=== PATIENT | male | born 1990 | race Caucasian/White ===

== ENCOUNTER 2024-07-11 10:55 | Emergency (ER) | payer SELFPAY ==
[2024-07-11 11:07] VITALS: BP 144/94; PULSE 81; RESP 18; TEMP 37; O2SAT 100; BMI 27.1
--- NOTE | 2024-07-11 12:25 | CRLHL7_ITS ---
For Patients: As a result of the Cures Act, medical imaging exams and procedure reports are released immediately into your electronic medical record. You may view this report before your referring provider. If you have questions, please contact your health care provider. Indication: Crush injury, laceration Technique: Three views left hand Comparison: None Findings/Impression: Bones: There are tuft fractures at the 3rd and 4th digits with a small fragment at the tip of the 3rd tuft with more fragmentation of the medial aspect of the left 4th tuft. No significant displacement. Joint spaces: Unremarkable. Soft tissues: Mild soft tissue swelling. Dictated by Nikita Walters MD @ 07/11/2024 1:00:02 PM (Electronically Signed)
[2024-07-11] MEDS: LIDOCAINE 1%-EPI 1:100,000 10 ML INFILTRATI (12:26)
--- NOTE | 2024-07-11 12:36 | ED.GENADULT ---
HPI - General Adult General Date Seen: 07/11/24 Chief complaint: Laceration/Wound Stated complaint: L hand lacs Time Seen by Provider: 07/11/24 12:00 History of Present Illness HPI narrative: Patient is a 34-year-old Setsw[place]-speaking male here from an injury at work. He had a heavy metal box fall on his left hand and injured his 3rd and 4th fingers. His pain is primarily in the distal 3rd and 4th fingers although he says his entire arm hurts from the shoulder down. No other specific injury aside from those distal fingers however. Tetanus is up-to-date. He has some generalized numbness and tingling in the fingers. Related Data Home Medications ?Medication ?Instructions ?Recorded ?Confirmed No Known Home Medications 07/11/24 07/11/24 Allergies Allergy/AdvReac Type Severity Reaction Status Date / Time No Known Drug Allergies Allergy Verified 07/11/24 11:19 PFSH PFSH Social History Smoking Status: Never smoker Do you use any of these nicotine containing products: None Exam Narrative: Exam Narrative: Vital signs reviewed In general, alert, well-appearing young man. Extremities: Examination of the left hand shows crush injury to the 3rd and 4th fingers. Both fingernails have avulsed from the nail bed at their base. Both distal fingers appear to be slightly volarly angulated. No active bleeding at this time. Notes decreased sensation to light touch over both fingers. Const: Vital Signs, click to edit/add: Vital Signs - 24 hr 07/11/24 11:07 Temperature 98.6 F Pulse Rate [Pulse Oximeter] 81 Respiratory Rate 18 Blood Pressure [Ri ght Upper Arm] 144/94 H Pulse Oximetry 100 Oxygen Delivery Me thod Room Air Documenting provider has reviewed patient's vital signs: yes Course Course ED Course: I did a digital block for both the 3rd and 4th fingers. Will get an x-ray to evaluate for bony injury. Both fingernails will need to be removed. He had good pain control with the digital block. X-rays of the hand show a tuft fractures of the 3rd and 4th finger, no significant displacement and no other fractures by my review. Final radiology read reviewed as well and notes minimally displaced tuft fractures. Procedure note: Both fingers were treated similarly, nails were removed and nail bed lacerations were closed using 4-0 Vicryl, 3 sutures in each nail bed. On the 4th finger, there was additional laceration into the skin on the sides of the finger, I placed 3 superficial simple interrupted sutures using 4-0 nylon in the ulnar aspect of the 4th finger and 1 in the radial aspect of the 4th finger. Nails were replaced underneath the eponychium and were tethered with sutures. He tolerated all this well without immediate complication. A tourniquet was placed while I worked on each finger individually and then was removed with completion. Bleeding controlled. A dressing was applied by the fire protection equipment technician followed by splint for both fingers. I am going to put him on Keflex for few days given these tuft fractures. I have given him some oxycodone for more severe pain over the next couple of days. I gave him a note for work, would not like him to use the left hand for the next week. Suture removal of the nylon sutures in a week, nail removal at that time as well. Absorbable sutures can be removed if he would like. For signs of infection such as increasing pain, swelling, drainage etcetera, return to the ER at any time. Vital Signs Vital signs: Initial Vital Signs Temperature 98.6 F 07/11/24 11:07 Temperature Source Temporal Artery Scan 07/11/24 11:07 Pulse Rate 81 07/11/24 11:07 Respiratory Rate 18 07/11/24 11:07 Blood Pressure 144/94 H 07/11/24 11:07 Blood Pressure Mean 110 H 07/11/24 11:07 Blood Pressure Position Sitting 07/11/24 11:07 Pulse Oximetry 100 07/11/24 11:07 Oxygen Delivery Method Room Air 07/11/24 11:07 Vital Signs Temperature 98.6 F 07/11/24 11:07 Pulse Rate 81 07/11/24 11:07 Respiratory Rate 18 07/11/24 11:07 Blood Pressure 144/94 H 07/11/24 11:07 Pulse Oximetry 100 07/11/24 11:07 Oxygen Delivery Method Room Air 07/11/24 11:07 Temperature 98.6 F 07/11/24 11:07 Pulse Rate 81 07/11/24 11:07 Respiratory Rate 18 07/11/24 11:07 Blood Pressure 144/94 H 07/11/24 11:07 Pulse Oximetry 100 07/11/24 11:07 Oxygen Delivery Method Room Air 07/11/24 11:07 Medications Administered Medications: Discontinued Medications Generic Name Dose Route Start Last Admin Trade Name Kristine PRN Reason Stop Dose Admin Lidocaine/Epinephrine 10 ml 07/11/24 12:14 07/11/24 12:26 Lidocaine 1%-Epi 1:100,000 INFILTRATI 07/11/24 12:15 10 ml ONCE ONE Administration Medical Decision Making Imaging Data Hand x-ray: Attestation: I have reviewed the pertinent imaging results. Radiologist's impression: [place] [address] Diagnostic Imaging Report Patient: Mark Anthony Ovalle MR#: [id number] : 1990 Acct:[id number] Loc: ED Service Date: 07/11/[address]: Ordering Physician: Radha Grimaldo M.D. Date of Service: 07/11/24 Procedure(s): XR hand LT min 3V Accession Number(s): [id number] cc: Radha Grimaldo M.D.~ For Patients: As a result of the Cures Act, medical imaging exams and procedure reports are released immediately into your electronic medical record. You may view this report before your referring provider. If you have questions, please contact your health care provider. Indication: Crush injury, laceration Technique: Three views left hand Comparison: None Findings/Impression: Bones: There are tuft fractures at the 3rd and 4th digits with a small fragment at the tip of the 3rd tuft with more fragmentation of the medial aspect of the left 4th tuft. No significant displacement. Joint spaces: Unremarkable. Soft tissues: Mild soft tissue swelling. Dictated by Nikita Walters MD @ 07/11/2024 1:00:02 PM Discharge Plan Discharge Clinical Impression: Nailbed injury, Closed fracture of tuft of distal phalanx of left middle finger, Closed fracture of tuft of distal phalanx of left ring finger Patient Disposition: Home, Self-Care Condition: Improved Instructions: Finger Fracture (ED), Finger Laceration (ED) Additional Instructions: Please take the antibiotic, Keflex, as prescribed. You have minor fractures at the tips of both of your fingers, these should heal well. You have lacerations on the nail beds of both fingers as well. These have absorbable sutures, which will dissolve over time. You have nonabsorbable sutures on your 4th finger which should be taken out in about a week. At that time, the nails which I sewed back on to protect your nail bed and cuticle can be removed as well. If you develop signs of infection such as increasing pain, swelling, redness or drainage, please return to the emergency department. Otherwise, follow-up with your outpatient clinic in 1 week for suture removal. For pain, you can use Tylenol and or Motrin. I gave you a prescription for oxycodone if needed for more severe pain over the next couple of days. Prescriptions: No Action No Known Home Medications Stand Alone Forms: [employer] Info Instructions
[2024-07-11 13:00] VITALS: BP 124/76; PULSE 80; RESP 16; O2SAT 99
== END 2024-07-11 14:28 | disposition home or self-care (01) ==
LOC: ED 14:16
PROVIDERS: Emergency Provider Emergency Medicine
DX: S62.633A Displaced fracture of distal phalanx of left middle finger, initial encounter for closed fracture (principal); S62.635A Displaced fracture of distal phalanx of left ring finger, initial encounter for closed fracture; S61.313A Laceration without foreign body of left middle finger with damage to nail, initial encounter; S61.314A Laceration without foreign body of right ring finger with damage to nail, initial encounter; W20.8XXA Other cause of strike by thrown, projected or falling object, initial encounter; Y99.0 Civilian activity done for income or pay
CPT/HCPCS: 12001; 73130; 99283; 99284

== ENCOUNTER 2024-07-22 13:52 | Emergency (ER) | payer SELFPAY ==
[2024-07-22 14:12] VITALS: BP 151/93; PULSE 83; RESP 16; TEMP 36.8; O2SAT 97
--- NOTE | 2024-07-22 14:13 | ED.GENADULT ---
HPI - General Adult General Chief complaint: Unspecified Complaint, Adult Stated complaint: Follow-up - stitches removed Time Seen by Provider: 07/22/24 13:55 History of Present Illness HPI narrative: 34-year-old man presenting to the emergency department for suture removal. Was seen 10 or 11 days ago in this department and diagnosed with closed distal tuft fractures of the left ring and middle fingers associated with nail bed lacerations. Nail bed was repaired and nail was sutured to the paronychia/eponychium. Did receive brief course of antibiotics. Has not been having any drainage or excessive pain. Did however have just a little bit of bleeding I believe this is yesterday is worried about potential infection. By the time I am seeing Mr. Soni in busy emergency department triage, sutures have already been removed. 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 He does have to use his left hand as well though I think is right handed. Related Data Home Medications ?Medication ?Instructions ?Recorded ?Confirmed No Known Home Medications 07/11/24 07/11/24 Allergies Allergy/AdvReac Type Severity Reaction Status Date / Time No Known Drug Allergies Allergy Verified 07/11/24 11:19 Review of Systems Status of ROS: Reports: 6 or more systems reviewed and unremarkable except as noted in History and below PFSH [facility] Social History Smoking Status: Never smoker Do you use any of these nicotine containing products: None Exam Narrative: Exam Narrative: Pleasant. NAD. Favoring the left hand. Left middle and ring finger are examined. There appears to be some fullness or clubbing of the nail at this point. Presumably with residual underlying nail bed edema. Is still adhered. There is some palmar angulation of the distal finger which might represent underlying fracture. I do not see surrounding redness or purulent drainage. No indication infection otherwise. Const: Documenting provider has reviewed patient's vital signs: yes Course Vital Signs Vital signs: Initial Vital Signs Temperature 98.2 F 07/22/24 14:12 Temperature Source Temporal Artery Scan 07/22/24 14:12 Pulse Rate 83 07/22/24 14:12 Respiratory Rate 16 07/22/24 14:12 Blood Pressure 151/93 H 07/22/24 14:12 Blood Pressure Mean 112 H 07/22/24 14:12 Blood Pressure Position Sitting 07/22/24 14:12 Pulse Oximetry 97 07/22/24 14:12 Vital Signs Temperature 98.2 F 07/22/24 14:12 Pulse Rate 83 07/22/24 14:12 Respiratory Rate 16 07/22/24 14:12 Blood Pressure 151/93 H 07/22/24 14:12 Pulse Oximetry 97 07/22/24 14:12 Temperature 98.2 F 07/22/24 14:12 Pulse Rate 83 07/22/24 14:12 Respiratory Rate 16 07/22/24 14:12 Blood Pressure 151/93 H 07/22/24 14:12 Pulse Oximetry 97 07/22/24 14:12 Medical Decision Making MDM Narrative Medical decision making narrative: I do think might benefit from some stabilization and protection with finger Stax splints. Did apply 2 of these. He can cut down the dorsal aspect for more comfort. Work note written at least for the next week for light duty. Unfortunately Mr. Soni is without insurance. Follow-up I think could be done through [facility]. See patient discharge plan for further discussion Ibuprofen, acetaminophen, elevation for comfort. Can wear these finger splints also for comfort. Would consider wearing them for the next week or 2 or any time you feel you need to protect your fingers from further pain over the next 6 weeks. I have written a work note for you for another week. You may yet need to be out at least another week given the physicality of your job. Please follow-up with [facility] if needed. Otherwise expect to completely lose this finger nail and trim the fingernail to protected from catching as it grows out. Medical Records Medical records reviewed: Yes I reviewed the patient's medical records Discharge Plan Discharge Clinical Impression: Encounter for removal of sutures, Fracture of finger, Laceration of finger nail bed Patient Disposition: Home, Self-Care Condition: Stable Additional Instructions: Ibuprofen, acetaminophen, elevation for comfort. Can wear these finger splints also for comfort. Would consider wearing them for the next week or 2 or any time you feel you need to protect your fingers from further pain over the next 6 weeks. I have written a work note for you for another week. You may yet need to be out at least another week given the physicality of your job. Please follow-up with [facility] if needed. Otherwise expect to completely lose this finger nail and trim the fingernail to protected from catching as it grows out. Ibuprofeno, acetaminof?n y elevaci?n para mayor comodidad. Tambi?n puede usar estas f?jeremiah para dedos para mayor comodidad. Considere usarlas hayes la pr?xima semana o dos, o en cualquier momento que necesite proteger jennifer dedos de m?s dolor hayes las pr?ximas 6 semanas. Le he dado analilia nota de trabajo por analilia semana m?s. Es posible que deba ausentarse al menos analilia semana m?s debido a la exigencia f?shannen de sorto trabajo. Por favor, consulte con la cl[facility] si es necesario. De lo contrario, es probable que pierda por completo la u?a y c?rtela para evitar que se enganche a medida que crezca. Prescriptions: No Action No Known Home Medications Follow Up/Referrals: Provider,Not a Local [Primary Care Provider] - Stand Alone Forms: [facility] Info Instructions
== END 2024-07-22 14:45 | disposition home or self-care (01) ==
PROVIDERS: Emergency Provider Family Medicine
DX: Z48.02 Encounter for removal of sutures (principal)
CPT/HCPCS: 99281; 99283